=== PATIENT | male | born 1985 | race African-American/Black ===

== ENCOUNTER 2016-09-02 04:29 | Emergency (ER) | payer OTHER ==
[~2016-09-02] VITALS: Ht 182.9 cm; Wt 82.0 kg
[~2016-09-02 04:29] MED LIST: KEPP250 PO; PHEN100C4 PO; PHEN300C6 PO; norco
[2016-09-02] MEDS ORDERED: SODIUM CHLORIDE 0.9% 1,000 ML IV ONE (04:51)
[2016-09-02 05:30] LABS: BASOPHILS % 0.9 % (0.0-2.0); EOSINOPHILS % 0.2 % (0.0-5.0); HEMATOCRIT. 39.6 % (42.0-52.0); HEMOGLOBIN. 13.1 g/dL (14.0-18.0); LYMPHOCYTES % 34.5 % (20.0-50.0); MEAN CORPUSCULAR HEMOGLOBIN 27.7 pg (28.0-32.0); MEAN CORPUSCULAR VOLUME 84.1 fL (80.0-94.0); MEAN PLATELET VOLUME 7.9 fl (7.4-10.4); MONOCYTES % 7.8 % (2.0-8.0); NEUTROPHILS % 56.6 % (40.0-76.0); PLATELET 189 x1000/uL (130-400); WHITE BLOOD COUNT 3.7 x1000/uL (4.5-11.0)
[2016-09-02 05:37] LABS: ALANINE AMINOTRANSFERASE 16 IU/L (13-61); ALBUMIN 3.7 g/dL (3.4-5.0); ANION GAP 9; CALCIUM 7.7 mg/dL (8.5-10.1); CARBON DIOXIDE 31 mEq/L (21-32); CHLORIDE 108 mEq/L (98-107); ETHANOL BLOOD 257 mg/dL; INDEX HEMOLYSI 1 (1-3); INDEX ICTERIC 1 (1-4); INDEX LIPEMIC 1 (1-3); UREA NITROGEN BLOOD 8 mg/dL (7-21); eGFR > 60 mL/min (>60)
[2016-09-02 06:18] LABS: *AMPHETAMINES SCREEN URINE PRESUMTIVE POSITIVE (NEGATIVE); *BARBITURATES SCREEN URINE NEGATIVE (NEGATIVE); *BENZODIAZEPINES SCREEN URINE NEGATIVE (NEGATIVE); *COCAINE SCREEN URINE NEGATIVE (NEGATIVE); CANNABINOID URINE SCREEN NEGATIVE (NEGATIVE); ECSTASY MDMA SCREEN URINE NEGATIVE (NEGATIVE); METHADONE URINE SCREEN NEGATIVE (NEGATIVE); OPIATES URINE SCREEN NEGATIVE (NEGATIVE); PHENCYCLIDINE URINE SCREEN NEGATIVE (NEGATIVE)
[2016-09-02] MEDS ORDERED: PHENYTOIN SODIUM 1,000 MG in SODIUM CHLORIDE 0.9% 100 ML IV NR (13:45)
[2016-09-02] MEDS ORDERED: HYDROCODONE/APAP 7.5/325MG 1 TAB TABLET PO NR (13:45)
[2016-09-02 15:29] VITALS: BP 128/77
== END 2016-09-02 16:59 | disposition home or self-care (01) ==
LOC: ER 04:46
DX: F10.129 Alcohol abuse with intoxication, unspecified (principal); F15.10 Other stimulant abuse, uncomplicated; F12.10 Cannabis abuse, uncomplicated; R56.9 Unspecified convulsions; Y90.8 Blood alcohol level of 240 mg/100 ml or more
CPT/HCPCS: 36415; 80053; 80305; 85025; 96361; 96365; 96366; 99285; G0482; J1165; J7030; Z7610; J7050

== ENCOUNTER 2018-12-28 09:51 | Emergency (ER) | payer BC, OTHER ==
[~2018-12-28] VITALS: Ht 198.1 cm; Wt 88.0 kg
[2018-12-28 10:15] VITALS: BP 158/104
== END 2018-12-28 13:19 | disposition left against medical advice (07) ==
LOC: ER 09:51
DX: Z53.21 Procedure and treatment not carried out due to patient leaving prior to being seen by health care provider (principal); R56.9 Unspecified convulsions; Z98.890 Other specified postprocedural states

== ENCOUNTER 2019-08-02 19:04 | Emergency (ER) | payer BC, OTHER ==
[~2019-08-02] VITALS: Ht 182.9 cm; Wt 80.0 kg
[2019-08-02] MEDS ORDERED: SODIUM CHLORIDE 0.9% 1,000 ML IV ONE (19:20)
[2019-08-02] MEDS ORDERED: ONDANSETRON HCL 4MG/2ML INJ IV ONE (19:30)
[2019-08-02] MEDS ORDERED: PHENYTOIN SODIUM EXTENDED 100MG CAPSULE PO ONE (19:30)
[2019-08-02] MEDS ORDERED: LEVETIRACETAM 500MG PREMIX 100 ML IV ONE (19:30)
[2019-08-02] MEDS ORDERED: LORAZEPAM 2MG/ML CPJ ONE (19:34)
[2019-08-02] MEDS ORDERED: LORAZEPAM 2MG/ML CPJ IV ONE (20:00)
[2019-08-02 20:47] LABS: BASOPHILS % 0.7 % (0.0-2.0); EOSINOPHILS % 0.8 % (0.0-5.0); HEMATOCRIT. 41.2 % (42.0-52.0); HEMOGLOBIN. 14.1 g/dL (14.0-18.0); MEAN CORPUSCULAR HEMOGLOBIN 29.1 pg (28.0-32.0); MEAN CORPUSCULAR VOLUME 85.3 fL (80.0-94.0); MEAN PLATELET VOLUME 7.6 fl (7.4-10.4); MONOCYTES % 8.1 % (2.0-8.0); NEUTROPHILS % 55.4 % (40.0-76.0); PLATELET 253 x1000/uL (130-400); RED BLOOD CELL COUNT 4.84 mill/uL (4.7-6.1)
[2019-08-02 20:52] LABS: CHLORIDE 110 mEq/L (98-107)
[2019-08-02 20:58] LABS: ETHANOL BLOOD 224 mg/dL
[2019-08-02 21:35] LABS: CLARITY URINE CLEAR (CLEAR); COLOR URINE YELLOW (YELLOW); KETONES URINE NEGATIVE (NEGATIVE); LEUKOCYTE ESTERASE URINE NEGATIVE (NEGATIVE); NITRITE URINE NEGATIVE (NEGATIVE); OCCULT BLOOD URINE 1+ (NEGATIVE); PROTEIN URINE NEGATIVE (NEGATIVE); SPECIFIC GRAVITY URINE 1.004 (1.005-1.030); UROBILINOGEN URINE 0.2 E.U./dL (0.2-1.0)
[2019-08-02] MEDS ORDERED: PHENYTOIN SODIUM 1,000 MG in SODIUM CHLORIDE 0.9% 100 ML IV ONE (21:45)
[2019-08-02 21:46] LABS: *AMPHETAMINES SCREEN URINE NEGATIVE (NEGATIVE); *BARBITURATES SCREEN URINE NEGATIVE (NEGATIVE)
[2019-08-02 21:47] LABS: *BENZODIAZEPINES SCREEN URINE PRESUMTIVE POSITIVE (NEGATIVE); *COCAINE SCREEN URINE NEGATIVE (NEGATIVE); CANNABINOID URINE SCREEN NEGATIVE (NEGATIVE); METHADONE URINE SCREEN NEGATIVE (NEGATIVE); OPIATES URINE SCREEN NEGATIVE (NEGATIVE); PHENCYCLIDINE URINE SCREEN NEGATIVE (NEGATIVE)
[2019-08-03 03:30] VITALS: BP 121/72
== END 2019-08-03 03:40 | disposition home or self-care (01) ==
LOC: ER 19:04
DX: G40.909 Epilepsy, unspecified, not intractable, without status epilepticus (principal); F10.129 Alcohol abuse with intoxication, unspecified; R11.0 Nausea; Y90.7 Blood alcohol level of 200-239 mg/100 ml
CPT/HCPCS: 36415; 80053; 80305; 80320; 81003; 82962; 85025; 96365; 96368; 96375; 99285; J1165; J1953; J2060; J2405; J7030; J7050; G0480

== ENCOUNTER 2021-03-12 18:41 | Emergency (ER) | payer OTHER ==
[~2021-03-12] VITALS: Ht 198.1 cm; Wt 94.0 kg
[2021-03-12 18:47] VITALS: BP 144/105
[2021-03-13] MEDS ORDERED: QUET100T PO (07:26)
[2021-03-13] MEDS ORDERED: QUET400T PO (07:26)
[2021-03-13] MEDS ORDERED: CEPH500C2 MT (11:18)
[2021-03-13] MEDS ORDERED: SULF1TAB48 MT (11:18)
== END 2021-03-12 21:58 | disposition left against medical advice (07) ==
LOC: ER 18:41
DX: Z53.21 Procedure and treatment not carried out due to patient leaving prior to being seen by health care provider (principal)

== ENCOUNTER 2021-03-13 07:14 | Emergency (ER) | payer OTHER ==
[~2021-03-13] VITALS: Ht 198.1 cm; Wt 92.0 kg
[2021-03-13] MEDS ORDERED: QUET100T PO (07:26)
[2021-03-13] MEDS ORDERED: QUET400T PO (07:26)
[2021-03-13] MEDS ORDERED: IBUPROFEN 400MG TABLET PO ONE (08:30)
[2021-03-13] MEDS ORDERED: ACETAMINOPHEN 325MG TABLET PO ONE (08:30)
[2021-03-13 08:46] VITALS: BP 148/100
[2021-03-13] MEDS ORDERED: CEPH500C2 MT (11:18)
[2021-03-13] MEDS ORDERED: SULF1TAB48 MT (11:18)
== END 2021-03-13 12:25 | disposition home or self-care (01) ==
LOC: ER 07:14
DX: L03.012 Cellulitis of left finger (principal); M79.89 Other specified soft tissue disorders; R56.9 Unspecified convulsions; Z98.890 Other specified postprocedural states
CPT/HCPCS: 73130; 99283

== ENCOUNTER 2024-05-04 17:35 | Emergency (ER) | payer OTHER ==
[~2024-05-04] VITALS: Ht 198.1 cm; Wt 93.0 kg
[~2024-05-04 17:35] MED LIST changes: +CEPH500C2 MT; +QUET100T PO; +QUET400T PO; +SULF1TAB48 MT
[2024-05-04 17:48] VITALS: O2SAT 100
[2024-05-04 23:58] LABS: BASOPHILS % 0.3 % (0.0-2.0); EOSINOPHILS % 0.2 % (0.0-5.0); HEMATOCRIT. 46.2 % (42.0-52.0); HEMOGLOBIN. 14.9 g/dL (14.0-18.0); LYMPHOCYTES % 8.4 % (20.0-50.0); MEAN CORPUSCULAR HEMOGLOBIN 27.3 pg (28.0-32.0); MEAN CORPUSCULAR HGB CONC 32.3 g/dL (31.0-37.0); MEAN CORPUSCULAR VOLUME 84.6 fL (80.0-94.0); MEAN PLATELET VOLUME 7.4 fl (7.4-10.4); MONOCYTES % 12.2 % (2.0-8.0); NEUTROPHILS % 78.9 % (40.0-76.0); PLATELET 252 x1000/uL (130-400); RED BLOOD CELL COUNT 5.46 mill/uL (4.7-6.1); RED CELL DISTRIBUTION WIDTH 15.5 % (11.6-14.6); WHITE BLOOD COUNT 8.5 x1000/uL (4.5-11.0)
[2024-05-05 00:04] LABS: CHLORIDE 104 mEq/L (98-107); POTASSIUM 4.1 mEq/L (3.5-5.1); SODIUM 137 mEq/L (136-145)
[2024-05-05 00:05] LABS: CALCIUM 9.1 mg/dL (8.7-10.4); CARBON DIOXIDE 25 mEq/L (21-32)
[2024-05-05 00:10] LABS: CREATININE 1.4 mg/dL (0.6-1.3); GLUCOSE 111 mg/dL (70-105); UREA NITROGEN BLOOD 12 mg/dL (9-23)
[2024-05-05 00:39] LABS: ETHANOL BLOOD < 10 mg/dL (<10)
[2024-05-05] MEDS ORDERED: TOPUD MT (02:17)
[2024-05-05] MEDS ORDERED: ONDA4TAB50 MT (02:17)
[2024-05-05 03:25] VITALS: BP 113/77; PULSE 102; RESP 16; TEMP 36.61404; O2SAT 100
== END 2024-05-05 03:28 | disposition home or self-care (01) ==
LOC: ER 17:35
DX: S06.0X9A Concussion with loss of consciousness of unspecified duration, initial encounter (principal); Z98.890 Other specified postprocedural states; Z79.899 Other long term (current) drug therapy; Y04.0XXA Assault by unarmed brawl or fight, initial encounter; Y93.89 Activity, other specified; Y92.89 Other specified places as the place of occurrence of the external cause; Y99.8 Other external cause status
CPT/HCPCS: 80048; 80320; 85025; 36415; 70450; 99284; Z7610; G0480